=== PATIENT | female | born 1945 | race Caucasian/White ===

== ENCOUNTER 2018-05-01 11:32 | Outpatient (CLI) | payer MEDICARE ==
--- NOTE | 2018-05-01 13:15 | RAD ---
RIGHT RIBS THREE VIEWS CHEST ONE VIEW: History: Right chest wall pain. FINDINGS: No displaced rib fracture or pneumothorax are apparent. Cardiac silhouette and pulmonary vasculature are unremarkable. Dual-lead left subclavian cardiac elec tronic device is in place. IMPRESSION: No significant abnormalities are demonstrated. POS: [facility]
== END 2018-05-01 11:33 | disposition home or self-care (01) ==
LOC: NAV RAD 11:32
PROVIDERS: ATTEND Family Medicine
DX: R07.81 Pleurodynia (principal)

== ENCOUNTER 2018-09-23 14:17 | Outpatient (CLI) | payer MEDICARE ==
[2018-09-23 14:43] LABS: ALT (SGPT) 26 U/L (8-55); AST (SGOT) 30 U/L (5-34); Albumin 4.1 g/dL (3.4-4.8); Alkaline Phosphatase 109 U/L (40-150); Anion Gap 14 mmol/L (10-20); BUN (Urea Nitrogen) 11 mg/dL (9.8-20.1); Bilirubin, Total 0.6 mg/dL (0.2-1.2); Calc. Creatinine Clearance 0 mL/min (70-130); Calcium 9.3 mg/dL (7.8-10.44); Carbon Dioxide 23 mmol/L (23-31); Chloride 108 mmol/L (98-107); Estimated GFR-MDRD 58; Globulin 2.6 g/dL (2.4-3.5); Glucose 101 mg/dL (83-110); Potassium 3.1 mmol/L (3.5-5.1); Protein, Total 6.7 g/dL (6.0-8.3); Sodium 142 mmol/L (136-145)
[2018-09-23 14:45] LABS: Troponin I Less than 0.010 ng/mL (< 0.028)
[2018-09-23 14:55] LABS: #Basophils 0.1 thou/uL (0.0-0.2); #Eosinphils 0.1 thou/uL (0.0-0.7); #Lymphocytes 1.4 thou/uL (1.20-3.40); #Monocytes 0.7 thou/uL (0.11-0.59); #Neutrophils 7.3 thou/uL (1.40-6.50); %Basophils 0.8 % (0.0-1.0); %Eosinophils 1.3 % (0.0-10.0); %Lymphocytes 14.1 % (21.0-51.0); %Monocytes 7.1 % (0.0-10.0); %Neutrophils 76.6 % (42.0-75.0); Hemoglobin 13.6 g/dL (12.0-16.0); Mean Corpuscular HGB CONC 32.2 g/dL (32.0-36.0); Mean Corpuscular Hemoglobin 28.8 pg (27.0-31.0); Mean Corpuscular Volume 89.6 fL (78.0-98.0); Platelet Count 204 thou/uL (130-400); RBC Distribution Width 12.6 % (11.5-14.5); Red Blood Cell (RBC) Count 4.72 mill/uL (4.20-5.40); White Blood Cell (WBC) Count 9.6 thou/uL (4.8-10.8)
== END 2018-09-23 14:18 | disposition home or self-care (01) ==
LOC: NAV LAB 14:17
PROVIDERS: ATTEND Family Medicine
DX: N20.0 Calculus of kidney (principal); R07.89 Other chest pain
CPT/HCPCS: 80053; 84484; 85025; 85379

== ENCOUNTER 2018-09-23 14:26 | Outpatient (CLI) | payer MEDICARE ==
--- NOTE | 2018-09-23 15:07 | RAD ---
PA AND LATERAL VIEWS CHEST: Date: 09/23/18 HISTORY: Atypical chest pain. FINDINGS: The heart size is normal. The aorta is tortuous. A left-sided pacemaker device is present. The lungs are well expanded without focal areas of consolidation, pneumothorax, or pleural effusions. No acute osseous abnormalities are identified. IMPRESSION: No radiographic evidence of acute cardiopulmonary process. POS: [facility]
== END 2018-09-23 14:27 | disposition home or self-care (01) ==
LOC: NAV RAD 14:26
PROVIDERS: ATTEND Family Medicine
DX: R07.89 Other chest pain (principal); N20.0 Calculus of kidney
CPT/HCPCS: 71046; 80053; 84484; 85025; 85379

== ENCOUNTER 2018-09-24 07:49 | Emergency (ER) | payer MEDICARE ==
--- NOTE | 2018-09-24 08:18 | RAD ---
F3 views left ankle. HISTORY: Fell from porch step with left ankle pain. AP, lateral and oblique views left ankle obtained. Images demonstrate a minimally displaced oblique spiral fracture through the distal left fibula. Ther e is adjacent soft tissue swelling and hematoma. IMPRESSION: Lateral malleolar fracture.
[2018-09-24] MEDS ORDERED: HYDROcodone/Acetaminophen 5/325 mg Tablet ONE (08:41)
[2018-09-24] MEDS ORDERED: Ondansetron ODT 4 MG TAB ONE (08:42)
== END 2018-09-24 09:00 | disposition home or self-care (01) ==
LOC: NAV ERS 07:49
DX: S82.832A Other fracture of upper and lower end of left fibula, initial encounter for closed fracture (principal); S70.02XA Contusion of left hip, initial encounter; S50.11XA Contusion of right forearm, initial encounter; I10 Essential (primary) hypertension; J44.9 Chronic obstructive pulmonary disease, unspecified; Z87.442 Personal history of urinary calculi; Z79.899 Other long term (current) drug therapy; W10.9XXA Fall (on) (from) unspecified stairs and steps, initial encounter
CPT/HCPCS: 29515; 71275; Q0162; Q9967

== ENCOUNTER 2018-09-24 09:00 | Outpatient (CLI) | payer MEDICARE ==
[~2018-09-24 09:00] MED LIST: Iopamidol 370 76% 100 ML VIAL ONE
--- NOTE | 2018-09-24 10:38 | CT ---
CT PULMONARY ANGIOGRAM WITH IV CONTRAST AND 3D POSTPROCESSING: HISTORY: Elevated D-dimer. Atypical chest pain. FINDINGS: No filling defects are seen in the contrast-opacified pulmonary arterial vasculature to suggest pulmo nary embolism. The thoracic aorta is well opacified without aneurysm or dissection. No pleural or p ericardial effusions are seen. There are mild dependent changes in the lung bases. No pneumothorace s, focal areas of consolidation, or lung masses are noted. The tracheobronchial tree is patent. There is a small hiatal hernia. Indeterminate adrenal nodules are present measuring 2.5 cm on the ri ght and 1.7 cm on the left. There are degenerative changes in the spine. IMPRESSION: 1. No CT evidence of pulmonary embolism or thoracic aortic dissection/aneurysm. 2. Small hiatal hernia. 3. Indeterminate bilateral adrenal nodules. Dedicated CT scan of the abdomen using the adrenal prot ocol is recommended. POS: [facility]
== END 2018-09-24 09:01 | disposition home or self-care (01) ==
LOC: NAV CT 09:00
PROVIDERS: ATTEND Family Medicine
DX: R79.1 Abnormal coagulation profile (principal); R07.89 Other chest pain; K44.9 Diaphragmatic hernia without obstruction or gangrene; E27.8 Other specified disorders of adrenal gland
CPT/HCPCS: 71275; Q9967

== ENCOUNTER 2018-10-14 09:47 | Outpatient (CLI) | payer MEDICARE ==
--- NOTE | 2018-10-14 11:43 | CT ---
CT of the abdomen with and without IV contrast INDICATION: Adrenal nodules COMPARISON: CTA of the thorax dated 09/24/2018 TECHNIQUE: Multiple CT images were obtained of the abdomen with and without contrast utilizing adrena l mass protocol. Contrast-enhanced examination was performed at the 65 second bassam and 10 minute bassam following administration of IV contrast. Axial and coronal reformatted images were constructed f rom the raw data. FINDINGS: There is a 1.9 cm nodule involving the body and medial limb of the left adrenal gland. The precontras t Hounsfield characteristics of this nodule is 14.14. The early enhancement with this lesion is 56.31 and on the 10 minute delayed the Hounsfield characteristics measured at 35.99. The absolute was hout is 47.6% and the relative washout is 35.7%. The right adrenal nodule involves the right medial limb and body of the adrenal gland and measures 2. 3 cm. The precontrast Hounsfield characteristics of this nodule is 22.7. The early enhancement characteristics is 65.6 and the delayed phase exam the adrenal nodule measured 38.36. The absolute wa shout was 63.5% and a relative washout was 41.5%. Incidental findings: There is a small hiatal hernia. The gallbladder surgically absent. There is mild intrahepatic and ext ra hepatic biliary ductal dilatation likely related to patient's postcholecystectomy state. The pancreas spleen and right kidney appear within normal limits. There is a tiny 2 mm calculus involving the inferior pole of the right kidney. There is renal cortical thinning involving the superior pole left kidney. There is a foreign 3 mm nodular calculus involving the superior pole of the left ki dney. There is mild scattered vascular calcifications. No acute osseous abnormality is evident. There are scattered degenerative and osteoarthritic change. IMPRESSION: 1. The right adrenal nodule has enhancement characteristics of a benign adenoma. 2. The left adrenal lesion has indeterminate enhancement characteristics. Further evaluation with an MRI of the abdomen may be helpful for additional characterization. 3. Small hiatal hernia 4. Bilateral nephrolithiasis
[2018-10-14] MEDS ORDERED: Iopamidol 370 76% 100 ML VIAL ONE (18:04)
== END 2018-10-14 09:48 | disposition home or self-care (01) ==
LOC: NAV CT 09:47
PROVIDERS: ATTEND Family Medicine
DX: Z01.812 Encounter for preprocedural laboratory examination (principal); E27.8 Other specified disorders of adrenal gland; N20.0 Calculus of kidney; K44.9 Diaphragmatic hernia without obstruction or gangrene
CPT/HCPCS: 36415; 74170; 82565; Q9967

== ENCOUNTER 2021-10-18 08:00 | Outpatient (CLI) | payer MEDICARE | END 2021-10-18 08:01 | disposition home or self-care (01) | LOC: NAV RAD 08:00 | PROVIDERS: ATTEND Family Medicine | DX: M25.511 Pain in right shoulder (principal) ==